=== PATIENT | male | born 1980 | race Caucasian/White ===

== ENCOUNTER 2020-12-06 21:52 | Emergency (ER) | payer BC ==
[~2020-12-06] VITALS: Ht 172.7 cm; Wt 115.7 kg
[2020-12-06 22:10] VITALS: BP 132/74
--- NOTE | 2020-12-06 22:47 | NUR ---
Patient discharged to home in stable condition. Written and verbal after care instructions given. Patient verbalizes understanding of instruction. Pt ambulatory with a steady gait
== END 2020-12-06 22:49 | disposition home or self-care (01) ==
LOC: ER 21:56
DX: S61.210A Laceration without foreign body of right index finger without damage to nail, initial encounter (principal); J45.909 Unspecified asthma, uncomplicated; W26.0XXA Contact with knife, initial encounter; Y93.89 Activity, other specified; Y92.89 Other specified places as the place of occurrence of the external cause; Y99.8 Other external cause status